=== PATIENT | female | born 1985 | race Caucasian/White ===

== ENCOUNTER 2016-07-05 16:51 | Emergency (ER) | payer OTHER ==
[2016-07-05 17:26] LABS: BILIRUBIN NEGATIVE (NEGATIVE); BLOOD NEGATIVE Ery/uL (NEGATIVE); CLARITY CLOUDY (CLEAR); COLOR YELLOW (YELLOW); GLUCOSE (U) NORMAL (NORMAL); KETONE (U) NEGATIVE (NEGATIVE); LEUKOCYTES NEGATIVE Leu/uL (NEGATIVE); NITRITE NEGATIVE (NEGATIVE); PROTEIN NEGATIVE (NEGATIVE); UROBILINOGEN 0.2 mg/dL (0.2-1.0); pH 8.5 (5.0-9.0)
[2016-07-05 17:52] LABS: BASOPHIL 0.2 % (0-2); EOSINOPHIL 0.8 % (0-5); HCT 38.5 % (37.0-47.0); HGB 12.8 g/dl (12.5-16.0); LYMPHOCYTE 23.6 % (15-48); MCH 29.4 pg (25.0-31.0); MCHC 33.2 g/dL (32.0-36.0); MCV 88.5 fL (78.0-100.0); MONOCYTE 6.8 % (0-12); MPV 9.5 fL (6.0-9.5); NEUTROPHIL 68.6 % (41-80); PLT 233 K/uL (150-400); RBC 4.35 M/uL (4.20-5.40); RDW 12.9 % (11.5-14.0); WBC 8.6 K/uL (4.0-10.5)
[2016-07-05 18:15] LABS: ALBUMIN 4.3 g/dL (3.5-5.0); BILIRUBIN - TOTAL 0.2 mg/dL (0.1-1.0); CREATININE 0.6 mg/dL (0.5-1.0); GLOBULIN (CALCULATION) 2.6 g/dL (2.2-4.2); POTASSIUM 4.1 mmol/L (3.5-5.1); TOTAL PROTEIN 6.9 g/dL (6.4-8.3)
[2016-07-07] MEDS ORDERED: PERCOCET 5/3251 TAB PO (10:40)
== END 2016-07-06 00:06 | disposition home or self-care (01) ==
LOC: FER 16:51
PROVIDERS: Emergency Medicine; Nurse Practitioner Family
DX: N70.11 Chronic salpingitis (principal); R30.0 Dysuria; F17.210 Nicotine dependence, cigarettes, uncomplicated; Z88.1 Allergy status to other antibiotic agents; Z88.2 Allergy status to sulfonamides
CPT/HCPCS: 36415; 76830; 80053; 81003; 82150; 83690; 85025; J1885; Q9967

== ENCOUNTER 2016-07-06 18:17 | Day surgery (SDCO) | payer OTHER ==
[2016-07-07] MEDS ORDERED: PERCOCET 5/3251 TAB PO (10:40)
--- NOTE | 2016-07-07 11:49 | NUR ---
REVIEWED DISCHARGE INSTRUCTIONS, MEDICATIONS, APPT INFORMATION WITH PT DR LAZO IN TO SEE PT PRIOR TO DISCHARGE PT DENIES PAIN OR DISCOMFORT AT THIS TIME VERBALIZED UNDERSTANDING OF DC INSTRUCTIONS
== END 2016-07-07 11:47 | disposition home or self-care (01) ==
LOC: FER 18:17 → FOR 20:50 → FMS 23:55
PROVIDERS: ADMIT Obstetrics & Gynecology
DX: N70.11 Chronic salpingitis (principal); F17.210 Nicotine dependence, cigarettes, uncomplicated; Z98.51 Tubal ligation status; Z88.1 Allergy status to other antibiotic agents; Z88.2 Allergy status to sulfonamides; Z79.2 Long term (current) use of antibiotics; Z90.49 Acquired absence of other specified parts of digestive tract
CPT/HCPCS: 87210; 88305; 94010; G0378; J1170; J1885; J2270; J2405; J2704; J2710; J2765; J3010